=== PATIENT | male | born 1940 | race Caucasian/White ===

== ENCOUNTER 2021-03-19 09:23 | Emergency (ER) | payer OTHER, SELFPAY ==
--- NOTE | ~2021-03-19 | CT_ITS ---
EXAMINATION: CT brain wo con, CT cervical spine wo con EXAM DATE: 03/19/2021 11:11 INDICATION: Fall, head injury. TECHNIQUE: Spiral CT of the head was performed without contrast. Axial, coronal and sagittal images were reviewed. Spiral CT of the cervical spine was performed without contrast. Axial images were rev iewed. Coronal and sagittal reformatted images were also reviewed. The dose-length product (DLP) fo r this examination was 681.00 (accession [id number]), 515.41 (accession [id number]) mGy-cm. The exposure was tailored according to patient size, and iterative reconstruction (ASIR) was used as additional dose reduction technique. There is no prior study for comparison. FINDINGS: HEAD CT: There is no acute intraparenchymal hemorrhage. No evidence of intraparenchymal brain mass l esion. No evidence of acute infarction. There is mild periventricular and subcortical hypodensity, n onspecific but probably related to small vessel ischemic disease. There is moderate prominence of t he sulci and ventricles related to cerebral atrophy. There is no mass effect or midline shift. The re is no obstructive hydrocephalus suspected. There are no extra-axial collections. There are no ac tanacross calvarial fractures. Patient has had bilateral ocular lens surgery. Soft tissue is unremarkable. The visualized sinuses and mastoid air cells are well aerated. CERVICAL CT: There is no evidence of acute cervical fracture. The odontoid process is intact. Pre- dens space is normal. Prevertebral soft tissue is normal. There are no soft tissue abnormalities id entified. There is no disc space widening or traumatic vertebral body subluxation suspected. There is moderate to severe disc disease at C5-6 and 6-7. There is advanced arthropathy with significant le ft neural foraminal stenosis particularly at C3-4 and L4-5. A detailed level by level evaluation of spondylosis can be added as addendum if requested. IMPRESSION: 1. No acute intracranial findings or cervical fracture. 2. Intracranial senescent changes. 3. Advanced cervical spondylosis. Reviewed, dictated and finalized at location [facility]. IMPRESSION: 1. No acute intracranial findings or cervical fracture. 2. Intracranial senescent changes. 3. Advanced cervical spondylosis.
[2021-03-19 09:32] VITALS: BP 164/62; PULSE 64; RESP 18; TEMP 37; O2SAT 100
--- NOTE | 2021-03-19 10:46 | ED.HEATRA ---
HPI - Head Injury General Chief complaint: Head Injury Stated complaint: fall/hi Time Seen by Provider: 03/19/21 09:58 Source: patient Mode of arrival: ambulatory Limitations: no limitations History of Present Illness HPI Narrative: Patient is an 80-year-old male who presents complaining of right ear pain and laceration. Patient reports falling out of bed this morning and hitting a night stand. He reports after hitting the night stand, he hit floor during fall. He denies headache, neck pain or other injuries. He denies loss of consciousness. He is not on anticoagulants. He denies over the counter pain medication prior to arrival. Complaint: fall Related Data Allergies Allergy/AdvReac Type Severity Reaction Status Date / Time No Known Allergies Allergy Unknown Unverified 01/20/04 07:19 Review of Systems Review of Systems: Narrative: CONSTITUTIONAL: Denies fever, chills, or sweats. EYES: Denies visual changes, redness, or discharge. ENT: Denies rhinorrhea, congestion, sore throat, or otalgia. CARDIOVASCULAR: Denies chest pain, palpitations, or edema. RESPIRATORY: Denies cough or dyspnea. GASTROINTESTINAL: Denies abdominal pain, nausea, vomiting, or diarrhea. GENITOURINARY: Denies dysuria or hematuria. SKIN: Reports laceration to right ear MUSCULOSKELETAL: Denies back pain, joint pain, or myalgia. NEUROLOGIC: Denies headache, numbness, dizziness, or weakness. PSYCHIATRIC: Denies anxiety or depression. [facility] Past Medical History Medical History History of kidney stones HTN (hypertension) Surgical History Surgical History H/O prostatectomy Hx of cholecystectomy Family History Family History Father Malignant neoplasm of prostate Mother Heart disease Social History Social History (Updated 03/19/21 @ 10:50 by SHIRLEY Muri) Smoking status: Never smoker Alcohol intake: never Substance use: never Living arrangements: with family Gender identity (if verbalized by the patient): Male Comments At the time of signature, I have reviewed and agree with nursing past medical, surgical, social, and family history unless otherwise noted. Please see nursing chart for further information. There is no relevant family history pertinent to the presenting complaint. Exam Narrative: Exam Narrative: GENERAL: Well-appearing, well-nourished, and in no acute distress. HEAD: Normocephalic, atraumatic. EYES: EOMI. No redness or drainage. Conjunctiva are normal. ENT: Mucous membranes pink and moist. Nares clear. No rhinorrhea. TMs normal bilaterally. Throat normal. Uvula midline. NECK: AROM. Supple. No lymphadenopathy. No tenderness with palpation. CHEST: No respiratory distress. HEART: Regular rate and rhythm. EXTREMITIES: Normal range of motion. SKIN: Laceration to right ear NEURO: No focal deficits. Alert and oriented x3. Gait steady. PSYCH: Normal affect. No signs of depression or anxiety. Course Vital Signs Vital signs: Vital Signs Temperature 37.0 C 03/19/21 09:32 Pulse Rate 64 03/19/21 09:32 Respiratory Rate 18 03/19/21 09:32 Blood Pressure 164/62 H 03/19/21 09:32 Pulse Oximetry 100 03/19/21 09:32 Temperature 37.0 C 03/19/21 09:32 Pulse Rate 64 03/19/21 09:32 Respiratory Rate 18 03/19/21 09:32 Blood Pressure 164/62 H 03/19/21 09:32 Pulse Oximetry 100 03/19/21 09:32 Reviewed. Patient has been instructed to follow-up with his PCP regarding his blood pressure. Procedures Laceration Laceration 1: Date: 03/19/21 Time: 13:19 Site: other (ear) Side (If applicable): right Size (cm): 2 (Multiple lacerations totalling approximately 2 cm) Description: irregular Depth: simple, single layer Local Anesthetic: lidocaine 1% Amount of anesthesia
[2021-03-19] MEDS: TETANUS,DIPHTHERIA,AC PERTUSSIS ADULT (0.5 ML) BOOSTRIX IM (11:16)
== END 2021-03-19 13:45 | disposition home or self-care (01) ==
PROVIDERS: Emergency Provider Nurse Practitioner; PCP Family Medicine Adolescent Medicine
DX: S01.311A Laceration without foreign body of right ear, initial encounter (principal); Z23 Encounter for immunization; Z87.442 Personal history of urinary calculi; I10 Essential (primary) hypertension; M47.812 Spondylosis without myelopathy or radiculopathy, cervical region; W06.XXXA Fall from bed, initial encounter
CPT/HCPCS: 12011; 70450; 72125; 90471; 90715; 99284

== ENCOUNTER 2021-04-09 10:34 | Emergency (ER) | payer OTHER, SELFPAY ==
[2021-04-09 10:42] VITALS: BP 129/69; PULSE 89; RESP 18; TEMP 36.6; O2SAT 98
[2021-04-09 10:51] VITALS: BP 129/69; PULSE 89; RESP 18; TEMP 36.6; O2SAT 98
--- NOTE | 2021-04-09 11:26 | ED.GENADULT ---
HPI - General Adult General Chief complaint: Extremity Injury, Lower Stated complaint: Left Foot swollen, redness and bump on the side Time Seen by Provider: 04/09/21 10:48 Source: patient, family and RN notes reviewed Mode of arrival: ambulatory Limitations: no limitations History of Present Illness HPI narrative: Patient and present today complaining of redness, swelling, pain, and lump to the base of the left great toe x2 days. Symptoms are worsening since onset. Currently rates his pain 8/10 and has been taking ibuprofen with some relief. Denies numbness or tingling in the foot or toes. History of gout. MD complaint: Redness and swelling to left foot. Related Data Home Medications Medication Instructions Recorded Confirmed aspirin [Adult Low Dose Aspirin] 81 mg PO DAILY 04/09/21 04/09/21 docosahexaenoic acid-epa [Fish Oil] 1 cap PO DAILY 04/09/21 04/09/21 hydrochlorothiazide 25 mg PO DAILY 04/09/21 04/09/21 Allergies Allergy/AdvReac Type Severity Reaction Status Date / Time No Known Allergies Allergy Unknown Verified 04/09/21 10:49 Review of Systems Review of Systems: CONSTITUTIONAL: Denies body aches, fever, chills, or sweats. EYES: Denies visual changes, redness, or discharge. ENT: Denies rhinorrhea, congestion, sore throat, or otalgia. CARDIOVASCULAR: Denies chest pain, palpitations, or edema. RESPIRATORY: Denies cough or dyspnea. GASTROINTESTINAL: Denies abdominal pain, nausea, vomiting, or diarrhea. GENITOURINARY: Denies dysuria or hematuria. SKIN: Denies rash, itching, or wounds. MUSCULOSKELETAL: Denies back pain, or myalgia. + Redness, swelling, and pain to the left foot NEUROLOGIC: Denies headache, numbness, tingling, or weakness. PSYCH: Denies depression or anxiety. [facility] Past Medical History Medical History (Updated 04/09/21 @ 12:51 by Jaleesa Chaney, SHIRLEY, ) Gout History of kidney stones HTN (hypertension) Surgical History Surgical History H/O prostatectomy Hx of cholecystectomy Family History Family History Father Malignant neoplasm of prostate Mother Heart disease Social History Social History Smoking status: Never smoker Alcohol intake: never Substance use: never Gender identity (if verbalized by the patient): Male Comments At time of signature, I have reviewed and agree with nursing past medical, surgical, social and family history unless otherwise noted. Please see nursing chart for further information. There is no relevant family history pertinent to the presenting complaint Exam Narrative: GENERAL: Well-appearing, well-nourished, and in no acute distress. HEAD: Normocephalic, atraumatic. EYES: EOMI. No redness or drainage. Conjunctivae normal. ENT: Mucous membranes pink and moist. NECK: Normal AROM. CHEST: No respiratory distress. EXTREMITIES: 3 x 2.5 cm fluctuant abscess to the medial left first MTP surrounded and erythema. Mildly tender to palpation. Distal sensation intact. Capillary refill normal. Pedal pulse normal. No pain with PROM of the first toe. SKIN: Warm, dry, no rash. Capillary refill normal. Normal skin turgor. NEURO: No focal deficits. Alert and oriented x3. Gait steady. PSYCH: Normal affect. No signs of depression or anxiety. Course Vital Signs Vital signs: Vital Signs Temperature 97.9 F 04/09/21 10:42 Pulse Rate 89 04/09/21 10:42 Respiratory Rate 18 04/09/21 10:42 Blood Pressure 129/69 04/09/21 10:42 Pulse Oximetry 98 04/09/21 10:42 Temperature 97.9 F 04/09/21 10:51 Pulse Rate 89 04/09/21 10:51 Respiratory Rate 18 04/09/21 10:51 Blood Pressure 129/69 04/09/21 10:51 Pulse Oximetry 98 04/09/21 10:51 Reviewed. Pt has been instructed to follow up with his PCP regarding his elevated blood pressure today. Proc
== END 2021-04-09 11:33 | disposition home or self-care (01) ==
PROVIDERS: Emergency Provider Nurse Practitioner; PCP Family Medicine Adolescent Medicine
DX: L02.612 Cutaneous abscess of left foot (principal); M10.9 Gout, unspecified; I10 Essential (primary) hypertension; Z90.79 Acquired absence of other genital organ(s)
CPT/HCPCS: 10060; 99213; G0463

== ENCOUNTER 2022-08-16 08:58 | Outpatient (CLI) | payer OTHER, SELFPAY ==
--- NOTE | ~2022-08-16 | US_ITS ---
US venous doppler [facility] DATE: 08/16/2022 09:34 INDICATION: Covid specified soft tissue disorders TECHNIQUE: Real-time and color flow imaging and Doppler analysis of the veins of the left lower extre mity COMPARISON: None FINDINGS: There is spontaneous and phasic flow and normal augmentation and color flow signal and norm al compression of the deep veins of the left lower extremity. IMPRESSION: No evidence of deep venous thrombosis of left lower extremity Reviewed, dictated and finalized at [facility]. Reviewed, dictated and finalized at location [facility]. RANCE BUSINESS ANALYST
== END 2022-08-16 08:59 | disposition home or self-care (01) ==
LOC: ANHIMG 09:00
PROVIDERS: PCP Family Medicine Adolescent Medicine; Visit Provider Physician Assistant
DX: M79.89 Other specified soft tissue disorders (principal)
CPT/HCPCS: 93971

== ENCOUNTER 2022-08-23 09:03 | Outpatient (CLI) | payer OTHER, SELFPAY ==
--- NOTE | ~2022-08-23 | XR_ITS ---
Clinical Indication: Wheezing PA and lateral views of the chest: Comparison: None Findings: Calcified left upper lobe granuloma noted. The lungs are otherwise clear, without evidence of focal consolidation or pleural effusion. Cardiomediastinal silhouette is within normal limits. Abdullahi gayathri and soft tissues are unremarkable. Impression: No significant abnormality seen. Reviewed, dictated and finalized at [facility]. ER INSPECTOR Impression: No significant abnormality seen.
[2022-08-23 09:45] LABS: Hematocrit 41.2 % (42.0-52.0); Hemoglobin 13.9 g/dL (14.0-18.0); Mean Corpuscular HGB Conc 33.7 g/dl (32-36); Mean Corpuscular Volume 85.8 fl (80-100); Mean Platelet Volume 9.6 fl (7.4-10.4); Platelet Count Result 236 k/mm3 (150-375); Red Cell Distribution Width 13.1 % (11.5-14.5); White Blood Count 6.4 K/mm3 (4.5-10.0)
[2022-08-23 10:02] LABS: Alanine Aminotransferase 19 U/L (6-50); Albumin Level 4.1 g/dL (3.5-5.1); Alkaline Phosphatase 81 U/L (38-126); Anion Gap 4 mmol/L (8-16); Aspartate Amino Transferase 25 U/L (17-59); Bilirubin,Total 0.6 mg/dL (0.2-1.3); Blood Urea Nitrogen 39 mg/dL (9-20); Calcium 8.4 mg/dL (8.4-10.2); Carbon Dioxide 29 mmol/L (22-30); Chloride 105 mmol/L (98-107); Cholesterol 163 mg/dL (0-200); Estimated Glomerular Filt Rate 42; Glucose 129 mg/dL (65-110); HDL Direct 37 mg/dL; Potassium 4.2 mmol/L (3.4-5.0); Sodium 138 mmol/L (137-145); Triglycerides 114 mg/dL (<150); Uric Acid 6.5 mg/dL (3.5-8.5)
[2022-08-23 10:13] LABS: LDL Cholesterol Direct 97 mg/dL
== END 2022-08-23 09:04 | disposition home or self-care (01) ==
LOC: ANHLAB 09:04
PROVIDERS: PCP Family Medicine Adolescent Medicine; Visit Provider Physician Assistant
DX: M79.89 Other specified soft tissue disorders (principal); Z13.220 Encounter for screening for lipoid disorders; I10 Essential (primary) hypertension; R06.02 Shortness of breath; R06.2 Wheezing
CPT/HCPCS: 36415; 71046; 80053; 80061; 84550; 85027

== ENCOUNTER 2022-09-08 09:34 | Outpatient (CLI) | payer OTHER, SELFPAY ==
[2022-09-08 10:13] LABS: Anion Gap 8 mmol/L (8-16); Blood Urea Nitrogen 14 mg/dL (9-20); Calcium 8.9 mg/dL (8.4-10.2); Carbon Dioxide 29 mmol/L (22-30); Chloride 101 mmol/L (98-107); Estimated Glomerular Filt Rate > 60; Glucose 143 mg/dL (65-110); Sodium 138 mmol/L (137-145)
== END 2022-09-08 09:35 | disposition home or self-care (01) ==
PROVIDERS: PCP Family Medicine Adolescent Medicine; Visit Provider Physician Assistant
DX: R94.4 Abnormal results of kidney function studies (principal)
CPT/HCPCS: 36415; 80048

== ENCOUNTER 2023-07-02 07:26 | Outpatient (CLI) | payer OTHER, SELFPAY ==
--- NOTE | 2023-07-02 07:37 | ECHO_ITS ---
Patient Info Name: Marvel Hunt Age: 83 years : 1940 Gender: Male Ht: 72 in Wt: 245 lbs BSA: 2.41 m2 HR: 63 bpm BP: 171 / 83 mmHg Technical Quality: Fair Exam Date: 07/02/2023 7:48 AM Exam Location: Echo Lab Patient Status: Outpatient Admit Date: 07/02/2023 Staff Ordering Physician: Yosi Zuñiga MD Barrel Assembler Helper: Anastasiia Avila RDCS Attending Provider: Yosi Zuñiga MD Referring Physician: Yogesh ZUÑIGA; Exam Type: CA echo doppler color flow Study Info Indications R06.09 - Other forms of dyspnea Complete two-dimensional, color flow and Doppler transthoracic echocardiogram is performed. Summary 1. Complete two-dimensional, color flow and Doppler transthoracic echocardiogram is performed. 2. Left ventricular chamber dimension is normal. 3. Left ventricular systolic function is normal, estimated at 60-65%. 4. The left ventricular diastolic function is grade I diastolic dysfunction. 5. E/e' 9 is minimally elevated. 6. Global longitudinal strain is mildly abnormal at -16.3%. 7. Left atrial chamber dimension is mildly enlarged. 8. There is mild aortic valve sclerosis. 9. There is mild mitral valve regurgitation. 10. No pulmonary hypertension, estimated pulmonary arterial systolic pressure is 35 mmHg. Left Ventricle E/e' 9 is minimally elevated. Global longitudinal strain is mildly abnormal at -16.3%. Left ventricular chamber dimension is normal. Left ventricular systolic function is normal, estimated at 60-65%. The left ventricular diastolic function is grade I diastolic dysfunction. Right Ventricle Right ventricular systolic function is normal and with normal TAPSE 3.3 cm. Right ventricular chamber dimension is normal. Left Atria Left atrial chamber dimension is mildly enlarged. Right Atria Right atrial chamber dimension is normal. Aortic Valve The aortic valve is trileaflet. There is mild aortic valve sclerosis. There is no aortic valve stenosis. There is no aortic valve regurgitation. Pulmonic Valve There is no pulmonic regurgitation. Mitral Valve There is no mitral valve stenosis. There is mild mitral valve regurgitation. Tricuspid Valve There is no tricuspid valve regurgitation. No pulmonary hypertension, estimated pulmonary arterial systolic pressure is 35 mmHg. Pericardium/Pleural There is no pericardial effusion. Inferior Vena Cava Normal inferior vena cava with >50% collapse upon inspiration consistent with normal right atrial pressure, 5 mmHg. Aorta The aortic root size at the sinus of Valsalva is normal. Left Ventricular Outflow Tract Name Value Normal LVOT 2D LVOT Diameter 2.0 cm LVOT Doppler LVOT Peak Gradient 4 mmHg LVOT Mean Gradient 3 mmHg LVOT VTI 27 cm LVOT VTI/AV VTI Ratio 0.9 LVOT Stroke Volume 82 ml LVOT CO 4.6 l/min LVOT CI 1.9 l/min/m2 Pulmonic Valve Name Value Normal
== END 2023-07-02 07:27 | disposition home or self-care (01) ==
PROVIDERS: PCP Family Medicine Adolescent Medicine; Visit Provider Family Medicine Adolescent Medicine
DX: R06.09 Other forms of dyspnea (principal); I10 Essential (primary) hypertension; I34.0 Nonrheumatic mitral (valve) insufficiency
CPT/HCPCS: 93306

== ENCOUNTER 2023-10-15 08:29 | Outpatient (CLI) | payer OTHER, SELFPAY ==
--- NOTE | ~2023-10-15 | US_ITS ---
EXAMINATION: US arterial ankle brachial ind DATE: 10/15/2023 10:06 INDICATION: Claudication at the bilateral lower limbs TECHNIQUE: Segmental pressures and plethysmographic and Doppler waveforms of the brachial and lower e xtremity arteries were obtained. COMPARISON: None. FINDINGS: Right and left brachial artery pressures of 141 mm Hg and 147 mm Hg, respectively, are concordant (no rmal difference <= 30 mmHg). The right ankle-brachial index (GILDARDO) is 1.32 (normal >= 0.9-1.0). The right great toe-brachial index (TBI) is 0.59 (normal >= 0.65). Arterial Doppler waveforms are triphasic at the right posterior tibia l artery and biphasic in the right dorsalis pedis artery, both with brisk systolic upstrokes. The left GILDARDO is 1.37. The left TBI is 0.58. Arterial Doppler waveforms are triphasic at the left post erior tibial artery and biphasic in the left dorsalis pedis artery, both with brisk systolic upstroke s. IMPRESSION: 1. Mild arterial occlusive disease to bilateral lower limbs with normal bilateral ABIs but mildly dec reased bilateral TBIs Reviewed, dictated and finalized at location [facility]. DATA LEAD IMPRESSION: 1. Mild arterial occlusive disease to bilateral lower limbs with normal bilater al ABIs but mildly decreased bilateral TBIs
--- NOTE | 2023-10-15 12:53 | P.PCNPFT_ITS ---
PFT Procedure Performed PFT Procedure Performed Plethysmography (Lung Vol) Diffusing Cap (DLCO) Flow Vol Loop Spirometry w/o Bronchodil PFT Interpretation Lung volumes were measured with the body plethysmography method. Lung volumes are unremarkable. Spirometry showed diminished expiratory flow rates and a d iminished FEV1 to FVC ratio 55% consistent with obstructive airway disease. Lung diffusion capacity is within the normal range at 78% predicted. The flow volume loop is consistent with obstructive airway disease. No post bronchodilator study was conducted. Impression: Mild obstructive airway disease. Lung diffusion capacity within the normal range.
== END 2023-10-15 08:30 | disposition home or self-care (01) ==
PROVIDERS: PCP Family Medicine Adolescent Medicine; Visit Provider Family Medicine Adolescent Medicine
DX: R06.09 Other forms of dyspnea (principal); I73.9 Peripheral vascular disease, unspecified; R94.2 Abnormal results of pulmonary function studies
CPT/HCPCS: 93922; 94375; 94726; 94729

== ENCOUNTER 2024-12-08 13:26 | Outpatient (CLI) | payer OTHER, SELFPAY ==
[2024-12-08 14:07] LABS: Basophils Absolute Auto 0.1 K/mm3 (0.0-0.1); Basophils Percent Auto 0.6 % (0.2-1.2); Eosinophils Absolute Auto 0.2 K/mm3 (0-0.3); Eosinophils Percent Auto 1.7 % (0-4.4); Hematocrit 44.4 % (42.0-52.0); Immature Granulocyte Absolute 0.07 K/mm3 (0.00-0.031); Immature Granulocyte Percent A 0.8 % (0-0.5); Lymphocytes Absolute Auto 1.67 K/mm3 (0.9-3.2); Lymphocytes Percent Auto 18.6 % (18.3-44.2); Mean Corpuscular HGB Conc 33.8 g/dl (32-36); Mean Corpuscular Volume 91.7 fl (80-100); Mean Platelet Volume 10.3 fl (7.4-10.4); Monocytes Absolute Auto 0.5 K/mm3 (0.1-0.6); Monocytes Percent Auto 5.9 % (2.6-8.5); Neutrophils Absolute Auto 6.5 K/mm3 (1.3-6.7); Neutrophils Percent Auto 72.4 % (45.5-73.1); Platelet Count Result 199 k/mm3 (150-375); Red Blood Count 4.84 M/mm3 (4.6-6.20); Red Cell Distribution Width 13.4 % (11.5-14.5)
[2024-12-08 14:29] LABS: Alanine Aminotransferase 22 U/L (6-50); Albumin Level 4.3 g/dL (3.5-5.1); Alkaline Phosphatase 83 U/L (38-126); Anion Gap 9 mmol/L (4-12); Aspartate Amino Transferase 24 U/L (17-59); Bilirubin,Total 0.8 mg/dL (0.2-1.3); Blood Urea Nitrogen 30 mg/dL (9-20); Calcium 9.1 mg/dL (8.4-10.2); Carbon Dioxide 27 mmol/L (22-30); Chloride 105 mmol/L (98-107); Estimated Glomerular Filt Rate 49; Glucose 147 mg/dL (65-110); Hemoglobin A1C 5.8 % (<5.7); Potassium 3.8 mmol/L (3.4-5.0); Sodium 141 mmol/L (137-145)
--- OUTSIDE RECORDS SUMMARY | 2024-12-08 14:50 | XMS_ITS | Clinical Summary ---
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 Gender Identity Not on file Sexual Orientation Not on file Plan of Treatment Health Maintenance Due Date Last Done Comments Hepatitis C Virus (HCV) Screening 1940 TdaP Immunization 1940 Pneumococcal Immunization (50+ years) (1 of 1 - PCV) 1990 Zoster Immunization (1 of 2) 1990 Respiratory Syncytial Virus (RSV) Immunization (Adult) (1 - 1-dose 75+ series) 2015 Influenza Immunization (#1) 04/27/202404/27, 05/30/2018, 05/25/2017, Additional history exists SARS-COV-2 Immunization ( - 2023- season) 2024 Hepatitis B Immunization Aged Out No longer eligible based on patient's age to complete this topic Meningococcal Immunization (ACWY) Aged Out No longer eligible based on patient's age to complete this topic Rotavirus Immunization Aged Out No lo nger eligible based on patient's age to complete this topic
[2024-12-08 15:39] LABS: Folic Acid 7.2 ng/mL (2.76->20)
== END 2024-12-08 13:27 | disposition home or self-care (01) ==
PROVIDERS: PCP Family Medicine Adolescent Medicine; Visit Provider Nurse Practitioner Family
DX: I10 Essential (primary) hypertension (principal); R73.03 Prediabetes; R41.89 Other symptoms and signs involving cognitive functions and awareness; R73.01 Impaired fasting glucose; G25.0 Essential tremor
CPT/HCPCS: 36415; 80053; 82607; 82746; 83036; 84443; 85025

== ENCOUNTER 2024-12-22 13:50 | Outpatient (CLI) | payer OTHER, SELFPAY ==
--- NOTE | ~2024-12-22 | MR_ITS ---
EXAMINATION: MR brain/brain stem wo con DATE: 12/22/2024 14:40 INDICATION: Other symptoms and signs involving cognitive function. TECHNIQUE: Magnetic resonance imaging (MRI) of the brain and brainstem was performed without intraven ous contrast. Sequences included sagittal and axial T1-weighted SE, axial diffusion-weighted FS SE, a xial 3D SWAN, axial T2-weighted FLAIR, and axial T2-weighted FSE. Apparent diffusion coefficient (ADC ) maps were created. COMPARISON: None. FINDINGS: There are no areas of restricted diffusion to suggest acute infarction. No intracranial hemorrhage or abnormal intracranial mass lesion. There are scattered areas of nonspecific increased T2-weighted si gnal intensity in the cerebral white matter, predominantly involving the deep and periventricular whi te matter. There are no intraparenchymal signal abnormalities seen on the other pulse sequences. The ventricles are symmetric and normal in size. There are no abnormal extra-axial fluid collections. Dandy w voids are seen in the cerebral arteries on the T2-weighted sequences consistent with their expected patency. Mild mucosal thickening the bilateral ethmoid sinuses. Changes of bilateral intraocular hanh s replacement. Symmetric prominence of the sulci consistent with mild age-appropriate diffuse cerebr al volume loss. Visualized orbits and soft tissues are unremarkable. IMPRESSION: 1. Age-related changes including mild diffuse volume loss and mild scattered white matter T2 hyperint ensity consistent with chronic small vessel ischemic disease. Reviewed, dictated and finalized at location [facility]. IMPRESSION: 1. Age-related changes including mild diffuse volume loss and mild scattered wh ite matter T2 hyperintensity consistent with chronic small vessel ischemic dise ase.
== END 2024-12-22 13:51 | disposition home or self-care (01) ==
PROVIDERS: PCP Family Medicine Adolescent Medicine; Visit Provider Nurse Practitioner Family
DX: R41.89 Other symptoms and signs involving cognitive functions and awareness (principal); G25.0 Essential tremor
CPT/HCPCS: 70551

== ENCOUNTER 2025-02-03 14:23 | Outpatient (CLI) | payer OTHER, SELFPAY ==
--- NOTE | ~2025-02-03 | CT_ITS ---
CT of the Abdomen and Pelvis: Indication: Hematuria Technique: 2.5 mm axial scans were obtained through the abdomen and pelvis prior to and following in travenous administration of 130 cc of Omnipaque 350. Dose reduction technique was used on this scan b y utilizing automated exposure control and iterative reconstruction technique. The dose-length produc t (DLP) was 2218.64 mGy-cm. Findings: Scans through the lung bases are unremarkable. The liver, spleen, pancreas, adrenals and kidneys are within normal limits. Cholecystectomy clips are present. There are atherosclerotic calcifications of the aorta. No lymphadenopathy. No bowel obstruction or bowel wall thickening. There is no evidence to suggest acute appendicitis. Images through the pelvis were performed. Urinary bladder unremarkable. Status post prostatectomy. No pelvic mass. No ascites. There is extensive degenerative spondylosis of the spine. Impression: No etiology for hematuria. No acute abnormality. Status post prostatectomy. Reviewed, dictated and finalized at [facility]. Impression: No etiology for hematuria. No acute abnormality. Status post prostatectomy.
[2025-02-03 14:57] LABS: Estimated Glomerular Filt Rate > 60
--- OUTSIDE RECORDS SUMMARY | 2025-02-03 15:52 | XMS_ITS | Clinical Summary ---
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
== END 2025-02-03 14:24 | disposition home or self-care (01) ==
PROVIDERS: PCP Family Medicine Adolescent Medicine; Visit Provider Nurse Practitioner Family
DX: R31.0 Gross hematuria (principal)
CPT/HCPCS: 74178; Q9967

== ENCOUNTER 2025-08-04 12:13 | Emergency (ER) | payer OTHER, SELFPAY ==
--- NOTE | ~2025-08-04 | XR_ITS ---
EXAMINATION: XR tibia fibula LT 2V DATE: 08/04/2025 13:04 INDICATION: Injury TECHNIQUE: Left tibia and fibula x-rays were obtained. COMPARISON: None. IMPRESSION 1. No displaced fracture or dislocation. 2. No suspicious radiopaque foreign body seen. 3. Incidental note of moderately extensive vascular calcifications in the soft tissues. Reviewed, dictated and finalized at location A. [employer] IMPRESSION 1. No displaced fracture or dislocation. 2. No suspicious radiopaque foreign body seen. 3. Incidental note of moderately extensive vascular calcifications in the soft tissues.
--- NOTE | ~2025-08-04 | XR_ITS ---
EXAMINATION: XR ankle LT min 3V DATE: 08/04/2025 13:03 INDICATION: Injury TECHNIQUE: Left ankle x-rays were obtained. COMPARISON: None. 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 There is also advanced degenerative changes in the subtalar, tarsonavicular, and naviculocuneiform joints. Moderate to large plantar calcaneal spur and small to moderate Achilles tendon enthesophyte. Vascular calcification in the soft tissues. No displaced fracture dislocation or aggressive bone lesion seen. Small joint effusion appears to be present. No radiopaque foreign body. Soft tissue swelling especially about the medial malleolus present. IMPRESSION: No fracture lucency identified. Probable joint effusion with soft tissue swelling. Extensive chronic degenerative appearing changes as above. Reviewed, dictated and finalized at location A. [employer] IMPRESSION: No fracture lucency identified. Probable joint effusion with soft t issue swelling. Extensive chronic degenerative appearing changes as above.
[2025-08-04 12:23] VITALS: BP 147/48; PULSE 72; RESP 20; TEMP 36.5; O2SAT 99
--- NOTE | 2025-08-04 12:29 | ED.EXTPRO ---
HPI - Extremity Problem General Chief complaint: Extremity Problem,Nontraumatic Stated complaint: left leg swollen/foot discolored Time Seen by Provider: 08/04/25 13:00 Source: patient and RN notes reviewed Mode of arrival: ambulatory Limitations: no limitations History of Present Illness HPI Narrative: 85-year-old male with history of dementia presents with concern for left ankle and lower leg swelling and bruising. His reports a week ago he tripped on some steps and since then has been having swelling and bruising to the lower leg ankle and foot. Patient is not complaining of any pain, his said he is limping. They have tried ice. MD Complaint: extremity swelling Related Data Home Medications ?Medication ?Instructions ?Recorded ?Confirmed ?Last Taken ?Type aspirin 81 mg tablet 81 mg PO DAILY 04/09/21 12/03/24 Unknown History docosahexaenoic acid (dha)-epa 120 1 cap PO DAILY 04/09/21 12/03/24 Unknown History mg-180 mg capsule (Fish Oil) cholecalciferol (vitamin D3) 50 50 mcg PO DAILY 07/08/24 12/03/24 Unknown History mcg (2,000 unit) capsule quetiapine 25 mg tablet mg 08/04/25 Unknown History rivastigmine tartrate 1.5 mg mg 08/04/25 Unknown History capsule Allergies Allergy/AdvReac Type Severity Reaction Status Date / Time No Known Allergies Allergy Unknown Verified 08/04/25 12:22 Review of Systems Review of Systems: CONSTITUTIONAL: Denies malaise, chills, sweats, or fever. SKIN: Denies rash or itching, open skin, laceration, abrasion, redness, warmth MUSCULOSKELETAL: Reports left lower leg, ankle, foot swelling and bruising NEUROLOGIC: Denies numbness, weakness All systems reviewed & are unremarkable except as noted in HPI and below PMFSH Past Medical History Medical History History of prostate cancer (2003) Gout HTN (hypertension) History of kidney stones Surgical History Surgical History History of radical prostatectomy (~2003) History of tonsillectomy and adenoidectomy History of cholecystectomy (~07/1999) Family History Family History Father Malignant neoplasm of prostate Mother Heart disease Social History Social History Smoking status: Never smoker Second hand tobacco smoke exposure: No Alcohol intake: never Substance use: never Substance use type: does not use Living arrangements: with family Occupation/Education: retired Gender identity (if verbalized by the patient): Male Sexual Orientation (if Verbalized by the Patient): Straight or Heterosexual Spiritual care concerns: No Agree to blood products: Yes Comments At time of signature, agree with nursing past medical, surgical, social and family history. There is no relevant family history pertinent to the presenting complaint Exam Narrative: GENERAL: Well-appearing, well-nourished, and in no acute distress. HEAD: Normocephalic, atraumatic. EYES: PERRLA, conjunctivae clear NECK: Supple. CHEST: Speaks in full sentences. No respiratory distress. HEART: Regular rate and rhythm. Normal and equal peripheral pulses. EXTREMITIES: Left lower leg, ankle, foot have grossly normal strength and sensation, grossly normal range of motion. Moderate pitting edema with dependent ecchymosis noted to the left ankle and foot. Normal sensation with sensitivity to light touch and pain. No point tenderness. No open wounds, no skin tenting, no devitalized tissue or atrophy, no trophic changes, no obvious deformity, alignment normal, nearby joints and structures intact. Distal pulses palpable and equal bilaterally, skin warm, dry, pink. Capillary refill less than 3 seconds. SKIN: Warm, dry, no rash. NEURO: Alert and oriented x3. PSYCH: Normal mood and affect Course Course Emergency Course: Patient is aware of diagnosis, understands and agrees to treatment plan. Anticipatory guidance given. Patient agrees to follow-up as directed and is aware of reasons to seek care at the emergency department. Portions of this record may have been created with voice recognition software Level of Care: Express Care Visit Vital Signs Vital signs: Vital Signs Temperature 97.7 F 08/04/25 12:23 Pulse Rate 72 08/04/25 12:23 Respiratory Rate 20 08/04/25 12:23 Blood Pressure 147/48 H 08/04/25 12:23 Pulse Oximetry 99 08/04/25 12:23 Oxygen Delivery Room Air 08/04/25 12:23 Temperature 97.7 F 08/04/25 12:23 Pulse Rate 72 08/04/25 12:23 Respiratory Rate 20 08/04/25 12:23 Blood Pressure 147/48 H 08/04/25 12:23 Pulse Oximetry 99 08/04/25 12:23 Oxygen Delivery Room Air 08/04/25 12:23 [facility] Differential Diagnosis Differential Diagnosis: I evaluated this patient in the [facility]. History is obtained from patient who is an independent historian and physical exam was performed.? Available medical records were reviewed. ? Exam findings and relevant testing show no acute concerns or changes; patient is non-toxic appearing and is in no distress. ? Patients injury and/or pain is consistent with musculoskeletal etiology. No signs of neurological or vascular compromise on exam. Compartments and tissues are soft without signs of compartment syndrome. Pain is felt appropriate for further evaluation on an outpatient basis. Differential diagnosis and treatment plan were discussed with the patient. Patient agrees with discussion and after shared medical decision making agrees with plan of care. All questions were answered to the patient's satisfaction. Patient is appropriate for outpatient treatment and follow-up. Discharge Plan Discharge Clinical Impression: Ankle joint effusion, Ankle sprain Patient Disposition: Home Condition: Stable Instructions: Ankle Sprain (ED), Swollen Ankle Joint (ED) Additional Instructions: Avoid activities that cause pain until the pain subsides. Ice to the area 20-30 minutes 4-6 times a day Elevate above heart Elastic wrap or orthopedic splint as directed for comfort for the next 5-7 days Crutches as directed if needed Tylenol for lesser pain Ibuprofen regularly for the next 2-3 days for the inflammation Follow up with your primary care provider if the condition is not improving within 1 week. If the condition worsens with numbness, tingling, decrease sensation with weakness seek treatment in the emergency room immediately. Patient Language: Sudanese Prescriptions: No Action Adult Low Dose Aspirin 81 mg Tablet 81 mg PO DAILY Fish Oil 120-180 mg Capsule 1 cap PO DAILY quetiapine 25 mg tablet rivastigmine tartrate 1.5 mg capsule cholecalciferol (vitamin D3) 50 mcg (2,000 unit) capsule 50 mcg PO DAILY Anoro Ellipta 62.5-25 mcg/actuation blister with device 1 inh inhalation DAILY Qty: 60 5RF indapamide 2.5 mg tablet See Rx Instructions .ROUTE .COMPLEX Qty: 90 0RF Dose Instruction: TAKE 1 TABLET BY MOUTH EVERY DAY Rx Instructions: TAKE 1 TABLET BY MOUTH EVERY DAY losartan 50 mg tablet 50 mg PO DAILY Qty: 90 3RF allopurinol 300 mg tablet 300 mg PO DAILY Qty: 90 3RF Follow-up/Referrals: Yosi Zuñiga MD [Primary Care Provider, Family Practice] Time of Disposition: 13:20
== END 2025-08-04 13:26 | disposition home or self-care (01) ==
PROVIDERS: Emergency Provider Nurse Practitioner; PCP Family Medicine Adolescent Medicine
DX: M25.472 Effusion, left ankle (principal); S93.402A Sprain of unspecified ligament of left ankle, initial encounter; W10.9XXA Fall (on) (from) unspecified stairs and steps, initial encounter; I10 Essential (primary) hypertension; M10.9 Gout, unspecified; Z85.46 Personal history of malignant neoplasm of prostate; Z90.79 Acquired absence of other genital organ(s); Z79.82 Long term (current) use of aspirin
CPT/HCPCS: 73590; 73610; 99213; G0463